=== PATIENT | male | born 1950 | race Asian ===

== ENCOUNTER → 2020-03-16 | Outpatient (CLI) | payer BC ==
[~2020-03-16] MED LIST: BENADRYL25 MG PO; MULTIVITAMINS
== END ==
LOC: LAB 09:45
PROVIDERS: ATTEND Family Medicine
DX: Z20.828 Contact with and (suspected) exposure to other viral communicable diseases (principal)

== ENCOUNTER → 2021-01-21 | Outpatient (CLI) | payer BC | LOC: ULTRA 07:24 | PROVIDERS: ATTEND Family Medicine | DX: M79.604 Pain in right leg (principal); M79.605 Pain in left leg ==